=== PATIENT | female | born 1995 | race Caucasian/White ===

== ENCOUNTER 2017-05-19 10:58 | Inpatient (IN) | payer OTHER, MEDICAID ==
[2017-05-19] VITALS (9 sets, daily range): BP systolic 102–125; BP diastolic 56–87
[~2017-05-19] VITALS: Ht 157.5 cm; Wt 61.8 kg
[~2017-05-19 10:58] MED LIST: ANTACID650 MG PO; AUGMENTIN 500-1 EACH PO; BACTRIM DS TAB1 EACH PO; BENADRYL25 MG PO; FENOFIBRATE160 MG PO; HUMALOG100 UNIT/2 SQ; HUMULIN 70100 UNIT/3 SQ; HUMULIN N100 UNIT/1 SUBQ; HUMULIN R100 UNIT/M SUBQ; HYDROCORTISONE 01 OZ TP; KEFLEX500 MG PO; LEVEMIR SUBQ; LEVOTHROID; LIPITOR 20 MG T20 M1 PO; MEDROLDOSEPACK PO; METHYLDOPA500 MG PO; NOVOLIN R100 UNIT/1 SUBQ; NOVOLOG100 UNIT/1 SUBQ; PANCRELIPASE PO; PRILOSEC 20 MG20 MG PO; PROAIR HFA8.5 GM INH; PROPYLTHIOURACI50 MG PO; PROTONIX40 M1 PO; SINGULAIR; SULFACETAMIDE 115 M1 OP; TAMIFLU75 MG PO; TAPAZOLE5 MG PO; TOBREX5 ML OP; ZOLOFT 50 MG TA50 M1; ZPAK PO
[2017-05-19 11:37] LABS: URINE BLOOD NEGATIVE (Negative); URINE CLARITY SL CLOUDY; URINE COLOR YELLOW; URINE GLUCOSE-RANDOM 3+ (Negative); URINE KETONES 2+ (Negative); URINE LEUKOCYTES-REFLEX NEGATIVE (Negative); URINE NITRITE-REFLEX NEGATIVE (Negative); URINE PROTEIN TRACE (Negative); URINE SPECIFIC GRAVITY >= 1.030 (1.005-1.030); URINE UROBILINOGEN 0.2 E.U./dl (0.2-1.0)
[2017-05-19 11:39] LABS: ICTOTEST (BILI CONFIRMATORY) Negative (Negative); URINE BILIRUBIN 2+ (Negative)
[2017-05-19 11:40] LABS: HEMATOCRIT 45.5 % (37.0-47.0); HEMOGLOBIN 14.8 gm/dL (12.0-15.0); MCH 26.4 pg (26.0-34.0); MCHC 32.5 g/dL (28.0-37.0); MCV 81.4 fL (80.0-100.0); MPV 9.1 fl. (7.2-11.1); NUCLEATED RBCS 0 /100WBC; PLATELET COUNT* 348 thou/uL (150-400); RBC 5.59 mil/uL (4.20-5.00); RDW-CV 15.8 % (10.5-14.5); WBC 12.1 thou/uL (4.0-11.0)
[2017-05-19 11:43] LABS: BACTERIA-REFLEX 1-9 Few /HPF (None Seen); CALCIUM 9.5 mg/dL (8.5-10.1); COARSE GRANULAR CASTS 4-10 Moderate /LPF (None Seen); CREATININE 1.7 mg/dL (0.6-1.3); CRYSTALS None Seen /LPF (None Seen); MUCUS 4-6 Moderate strn/LPF (None Seen); POTASSIUM 4.4 mmol/L (3.5-5.1); SQUAMOUS >10 Many /LPF (0-3); URINE RBC 3-10 Few /HPF (0-2); URINE WBC-REFLEX 6-15 Few /HPF (0-5)
[2017-05-19 11:53] LABS: ALBUMIN 4.4 g/dL (3.4-5.0); TOTAL BILIRUBIN 0.5 mg/dL (<0.1-1.0); TOTAL PROTEIN 10.1 g/dL (6.4-8.2)
[2017-05-19 11:57] LABS: BE -13.4 mmol/L (-2 to +3); PCO2 21.2 mmHg (35.0-45.0); PO2 106.1 mmHg (75.0-100.0)
[2017-05-19 12:00] LABS: HCO3 10.4 mmol/L (22.0-26.0)
[2017-05-19 12:14] LABS: ABSOLUTE LYMPHOCYTES 3.1 thou/uL (0.8-5.3); ABSOLUTE MONOCYTES 0.2 thou/uL (0.0-1.2); ABSOLUTE NEUTROPHILS 8.7 thou/uL (1.6-8.1); ANISOCYTOSIS 1+; PLATELET ESTIMATE ADEQUATE; POIKILOCYTOSIS 1+
[2017-05-19 12:56] LABS: MAGNESIUM 1.9 mg/dL (1.8-2.4); PHOSPHORUS* 5.6 mg/dL (2.5-4.9)
[2017-05-19 15:07] LABS: ABSOLUTE BASOPHILS 0.1 thou/uL (0.0-0.2); ABSOLUTE LYMPHOCYTES 5.2 thou/uL (0.8-5.3); ABSOLUTE MONOCYTES 0.4 thou/uL (0.0-1.2); ABSOLUTE NEUTROPHILS 5.1 thou/uL (1.6-8.1); BASOPHILS 1.1 %; EOSINOPHILS 0.2 %; HEMATOCRIT 35.6 % (37.0-47.0); LYMPHOCYTES 48.1 %; MCH 26.5 pg (26.0-34.0); MCHC 33.3 g/dL (28.0-37.0); MCV 79.6 fL (80.0-100.0); MONOCYTES 4.1 %; MPV 8.9 fl. (7.2-11.1); NUCLEATED RBCS 0 /100WBC; POLYS 46.5 %; RBC 4.47 mil/uL (4.20-5.00); RDW-CV 15.5 % (10.5-14.5); WBC 10.9 thou/uL (4.0-11.0)
[2017-05-19 15:08] LABS: HEMOGLOBIN 11.8 gm/dL (12.0-15.0); PLATELET COUNT* 258 thou/uL (150-400)
[2017-05-19 15:18] LABS: ALBUMIN 3.4 g/dL (3.4-5.0); CALCIUM 8.1 mg/dL (8.5-10.1); PHOSPHORUS* 2.5 mg/dL (2.5-4.9); POTASSIUM 4.2 mmol/L (3.5-5.1)
--- NOTE | 2017-05-19 19:13 | NUR ---
PATIENT RESTED WELL THROUGHOUT SHIFT. PATIENT REMAINS ON DKA PROTOCOL. IV FLUIDS CHANGED TO D10NS PER PROTOCOL. PATIENT TOLERATING DKA PROTOCOL WELL. PATIENT DENIES COMPLAINTS AND CONCERNS OUTSIDE OF MILD ABDOMINAL PAIN AND NAUSEA. VSS. ST NOTED ON CARDIAC MONITORING. BEDSIDE REPORT TO BE GIVEN TO ONCOMING SHIFT.
[2017-05-19 20:26] LABS: ALBUMIN 3.1 g/dL (3.4-5.0); CALCIUM 8.1 mg/dL (8.5-10.1); CREATININE 0.9 mg/dL (0.6-1.3); MAGNESIUM 1.5 mg/dL (1.8-2.4); PHOSPHORUS* 2.6 mg/dL (2.5-4.9); POTASSIUM 3.8 mmol/L (3.5-5.1)
[2017-05-19 23:08] LABS: ALBUMIN 2.8 g/dL (3.4-5.0); CALCIUM 7.9 mg/dL (8.5-10.1); CREATININE 0.8 mg/dL (0.6-1.3); MAGNESIUM 1.6 mg/dL (1.8-2.4); PHOSPHORUS* 2.4 mg/dL (2.5-4.9); POTASSIUM 3.3 mmol/L (3.5-5.1)
[2017-05-20] VITALS (12 sets, daily range): BP systolic 98–128; BP diastolic 56–89
[2017-05-20 04:18] LABS: ABSOLUTE EOSINOPHILS 0.2 thou/uL (0.0-0.7); ABSOLUTE LYMPHOCYTES 4.6 thou/uL (0.8-5.3); ABSOLUTE MONOCYTES 0.4 thou/uL (0.0-1.2); ABSOLUTE NEUTROPHILS 2.4 thou/uL (1.6-8.1); BASOPHILS 0.6 %; EOSINOPHILS 2.3 %; HEMATOCRIT 33.2 % (37.0-47.0); HEMOGLOBIN 11.4 gm/dL (12.0-15.0); LYMPHOCYTES 60.2 %; MCHC 34.4 g/dL (28.0-37.0); MCV 78.5 fL (80.0-100.0); MONOCYTES 5.5 %; MPV 8.6 fl. (7.2-11.1); NUCLEATED RBCS 0 /100WBC; PLATELET COUNT* 237 thou/uL (150-400); POLYS 31.4 %; RBC 4.23 mil/uL (4.20-5.00); RDW-CV 15.4 % (10.5-14.5); WBC 7.6 thou/uL (4.0-11.0)
[2017-05-20 04:45] LABS: ALBUMIN 2.8 g/dL (3.4-5.0); CALCIUM 7.8 mg/dL (8.5-10.1); CREATININE 0.7 mg/dL (0.6-1.3); MAGNESIUM 1.7 mg/dL (1.8-2.4); PHOSPHORUS* 3.3 mg/dL (2.5-4.9); POTASSIUM 3.5 mmol/L (3.5-5.1)
--- NOTE | 2017-05-20 07:50 | NUR ---
PT RESTING WELL. INSULIN GTT REMAINS IN USE. PT WANTING TO EAT. PT TOLERATING ICE CHIPS. BSC IN USE.PT DENIES ANY COMPLAINTS OF PAIN OR DISCOMFORT AT THIS TIME.
[2017-05-20 08:06] LABS: CREATININE 0.9 mg/dL (0.6-1.3); POTASSIUM 4.1 mmol/L (3.5-5.1); TOTAL BILIRUBIN 0.4 mg/dL (<0.1-1.0)
[2017-05-20 12:01] LABS: ALBUMIN 2.8 g/dL (3.4-5.0); CALCIUM 8.2 mg/dL (8.5-10.1); MAGNESIUM 1.9 mg/dL (1.8-2.4); POTASSIUM 4.3 mmol/L (3.5-5.1)
--- NOTE | 2017-05-20 17:15 | NUR ---
PT WANTING TO GO HOME. DR KENNEDY MADE AWARE, SUGGESTED THAT PT NEEDS TO STAY ONE MORE NIGHT TO SEE ADMITTING DR IN AM. PT CHOOSES TO GO AMA, AMA PAPER SIGNED AND ON HIS WAY TO CREDIT INTERN PT. ALL POSSABLE OUTCOMES EXPLAINED INCLUDING .PT STILL CHOOSES TO GO HOME.SL'S DISCONTINUED. PT LEFT WITH ALL PERSONAL BELONINGS AND EXITED DOOR NEXT TO ICU WAITING ROOM.
== END 2017-05-20 17:25 | disposition home or self-care (01) | DRG 638 ==
LOC: M.ERS 10:58 → M.TBA-ER 13:05 → M.ICU 13:05
PROVIDERS: Personal Emergency Response Attendant; ADMIT Family Medicine
DX: E10.10 Type 1 diabetes mellitus with ketoacidosis without coma (principal); K86.1 Other chronic pancreatitis; E05.00 Thyrotoxicosis with diffuse goiter without thyrotoxic crisis or storm; F17.210 Nicotine dependence, cigarettes, uncomplicated; Z79.899 Other long term (current) drug therapy; Z79.4 Long term (current) use of insulin; Z88.8 Allergy status to other drugs, medicaments and biological substances; Z91.013 Allergy to seafood; Z83.3 Family history of diabetes mellitus

== ENCOUNTER 2017-07-05 18:52 | Emergency (ER) | payer OTHER, MEDICAID ==
[~2017-07-05] VITALS: Ht 157.5 cm; Wt 59.0 kg
[2017-07-05 19:20] LABS: ABSOLUTE BASOPHILS 0.1 thou/uL (0.0-0.2); ABSOLUTE EOSINOPHILS 0.1 thou/uL (0.0-0.7); ABSOLUTE LYMPHOCYTES 2.7 thou/uL (0.8-5.3); ABSOLUTE MONOCYTES 0.7 thou/uL (0.0-1.2); ABSOLUTE NEUTROPHILS 5.8 thou/uL (1.6-8.1); BASOPHILS 0.7 %; EOSINOPHILS 1.2 %; HEMATOCRIT 39.8 % (37.0-47.0); HEMOGLOBIN 13.2 gm/dL (12.0-15.0); LYMPHOCYTES 28.6 %; MCH 25.5 pg (26.0-34.0); MCHC 33.2 g/dL (28.0-37.0); MCV 76.7 fL (80.0-100.0); MONOCYTES 7.3 %; MPV 9.5 fl. (7.2-11.1); NUCLEATED RBCS 0 /100WBC; PLATELET COUNT* 218 thou/uL (150-400); POLYS 62.2 %; RBC 5.19 mil/uL (4.20-5.00); RDW-CV 14.6 % (10.5-14.5); WBC 9.4 thou/uL (4.0-11.0)
[2017-07-05 19:25] LABS: CALCIUM 9.3 mg/dL (8.5-10.1); CREATININE 0.7 mg/dL (0.6-1.3); POTASSIUM 3.9 mmol/L (3.5-5.1)
[2017-07-05 19:28] LABS: URINE BILIRUBIN NEGATIVE (Negative); URINE BLOOD NEGATIVE (Negative); URINE CLARITY CLEAR; URINE COLOR YELLOW; URINE GLUCOSE-RANDOM 3+ (Negative); URINE KETONES NEGATIVE (Negative); URINE LEUKOCYTES-REFLEX NEGATIVE (Negative); URINE NITRITE-REFLEX NEGATIVE (Negative); URINE PROTEIN NEGATIVE (Negative); URINE UROBILINOGEN 0.2 E.U./dl (0.2-1.0)
[2017-07-05 19:29] LABS: ALBUMIN 3.5 g/dL (3.4-5.0); TOTAL BILIRUBIN 0.2 mg/dL (<0.1-1.0); TOTAL PROTEIN 8.5 g/dL (6.4-8.2)
[2017-07-05] MEDS ORDERED: FLAGYL500 MG PO (21:20)
[2017-07-05] MEDS ORDERED: PHENERGAN 25 MG25 M1 PO (21:20)
[2017-07-05] MEDS ORDERED: TRAMADOL 50 MG50 MG PO (21:20)
[2017-07-05 21:47] VITALS: BP 118/87
== END 2017-07-05 21:47 | disposition home or self-care (01) ==
LOC: M.ERS 18:52
PROVIDERS: Physician Assistant
DX: R10.31 Right lower quadrant pain (principal); E10.9 Type 1 diabetes mellitus without complications; E05.90 Thyrotoxicosis, unspecified without thyrotoxic crisis or storm; F17.210 Nicotine dependence, cigarettes, uncomplicated; Z88.6 Allergy status to analgesic agent; Z91.013 Allergy to seafood

== ENCOUNTER 2018-01-23 19:02 | Emergency (ER) | payer BC ==
[~2018-01-23] VITALS: Ht 157.5 cm; Wt 54.0 kg
[~2018-01-23 19:02] MED LIST changes: +FLAGYL500 MG PO; +PHENERGAN 25 MG25 M1 PO; +TRAMADOL 50 MG50 MG PO
[2018-01-23] MEDS ORDERED: NOVOLOG100 UNIT/1 SUBQ (19:15)
[2018-01-23] MEDS ORDERED: LEVEMIR100 UNIT/1 SUBQ (19:16)
[2018-01-23 19:41] LABS: URINE BLOOD 3+ (Negative); URINE CLARITY SL CLOUDY; URINE COLOR YELLOW; URINE GLUCOSE-RANDOM 3+ (Negative); URINE LEUKOCYTES NEGATIVE (Negative); URINE NITRITE NEGATIVE (Negative); URINE PROTEIN NEGATIVE (Negative)
[2018-01-23 19:49] LABS: AMP/METHAMP Negative (Negative); BARBITURATES Negative (Negative); BENZODIAZEPINES Negative (Negative); COCAINE Negative (Negative); METHADONE Negative (Negative); OPIATES Negative (Negative); PCP Negative (Negative); THC Negative (Negative)
[2018-01-23 19:52] LABS: HEMATOCRIT 36.1 % (37.0-47.0); MCH 24.9 pg (26.0-34.0); MCHC 33.2 g/dL (28.0-37.0); MCV 74.9 fL (80.0-100.0); MPV 9.1 fl. (7.2-11.1); RBC 4.83 mil/uL (4.20-5.00); RDW-CV 15.3 % (10.5-14.5); WBC 9.2 thou/uL (4.0-11.0)
[2018-01-23 19:55] LABS: URINE KETONES 3+ (Negative)
[2018-01-23 19:56] LABS: ICTOTEST (BILI CONFIRMATORY) Negative (Negative); URINE BILIRUBIN 1+ (Negative)
[2018-01-23 20:00] LABS: CALCIUM 8.9 mg/dL (8.5-10.1); CREATININE 0.8 mg/dL (0.6-1.3); POTASSIUM 3.7 mmol/L (3.5-5.1)
[2018-01-23 20:04] LABS: ALBUMIN 3.6 g/dL (3.4-5.0); TOTAL BILIRUBIN 0.2 mg/dL (<0.1-1.0); TOTAL PROTEIN 7.8 g/dL (6.4-8.2)
[2018-01-23 20:14] LABS: BACTERIA 1-9 Few /HPF (None Seen); CASTS None Seen /LPF (None Seen); MUCUS 0-3 Light strn/LPF (None Seen); SQUAMOUS >10 Many /LPF (0-3); URINE RBC >20 Many /HPF (0-2); URINE WBC None Seen /HPF (0-5)
[2018-01-23 20:15] LABS: CRYSTALS None Seen /LPF (None Seen)
[2018-01-23 20:18] LABS: ALCOHOL < 10 mg/dL (<10); SALICYLATE 4.2 mg/dL (2.8-20.0)
[2018-01-23 20:19] LABS: ACETAMINOPHEN < 2 ug/mL (10-30)
[2018-01-24 01:22] VITALS: BP 141/99
== END 2018-01-24 01:22 | disposition home or self-care (01) ==
LOC: M.ERS 19:02
PROVIDERS: Personal Emergency Response Attendant
DX: F32.9 Major depressive disorder, single episode, unspecified (principal); E10.9 Type 1 diabetes mellitus without complications; F17.210 Nicotine dependence, cigarettes, uncomplicated; Z88.1 Allergy status to other antibiotic agents